=== PATIENT | female | born 1935 | race Two or more races ===

== ENCOUNTER 2020-02-25 05:59 | Inpatient (IN) | payer MEDICARE, MEDICAID ==
[~2020-02-25] VITALS: Ht 165.1 cm; Wt 72.6 kg
[2020-02-25] VITALS (15 sets, daily range): BP systolic 111–193; BP diastolic 65–106
[~2020-02-25 05:59] MED LIST: AVAPRO150 MG ORAL; CRESTOR10 M2 ORAL; DEXILANT60 MG ORAL; DOXAZOSIN MESYLA4 MG ORAL; ELIQUIS5 MG PO; PACERONE200 MG ORAL; SPIRONOLACTONE100 MG ORAL; SYNTHROID25 MCG ORAL; ceFAZolin sod 1 GM in NS 55 ML IVPB ONE
[2020-02-25] MEDS ORDERED: LR 1000ml 1,000 ML IVLG SCH ×2 (07:01)
[2020-02-25] MEDS ORDERED: Rocuronium Bromide 50mg/5ml Inj IV ONE (07:04)
[2020-02-25] MEDS ORDERED: Lidocaine 1% MPF 10mg/ml 5ml ONE (07:12)
[2020-02-25] MEDS ORDERED: Dexamethasone 4mg/ml vial ONE (07:12)
[2020-02-25] MEDS ORDERED: Sodium Chloride 10ml vial INJ ONE (07:12)
[2020-02-25] MEDS ORDERED: Propofol 200mg/20ml IV ONE ×2 (07:12→07:21)
--- NOTE | 2020-02-25 07:12 | Anethesia Preoperative Eval ---
Anesthesia Pre-op PMH/ROS General Date of Evaluation: Feb 25, 2020 Time of Evaluation: 07:36 Anesthesiologist: Bobby ASA Score: ASA 3 Mallampati Score Class I : Soft palate, uvula, fauces, pillars visible Class II: Soft palate, uvula, fauces visible Class III: Soft palate, base of uvula visible Class IV: Only hard plate visible Mallampati Classification: Class II Surgeon: Curtis Diagnosis: Abd Pain Surgical Procedure: Adrenalectomy Anesthesia History: none Family History: no anesthesia problems Allergies: Coded Allergies: No Known Allergies (Unverified , 02/25/20) Medications: see eMAR Patient NPO?: Yes Past Medical History Cardiovascular: Reports: HTN, arrhythmia - AFib, other - HL, CHF Gastrointestinal/Genitourinary: Reports: GERD Hematology/Immune: Reports: other - Skin CA Musculoskeletal/Integumentary: Reports: OA PSxH Narrative: Venous Thrombectomy, R Breast Lumpectomy, RHIANNA/BSO Anesthesia Pre-op Phys. Exam Physician Exam Last Vital Signs Date Time Temp Pulse Resp B/P (MAP) Pulse Ox O2 Delivery O2 Flow Rate FiO2 02/25/20 06:52 Room Air 02/25/20 06:35 97.7 97 20 156/96 97 Constitutional: NAD Neurologic: CN 2-12 intact Cardiovascular: RRR Respiratory: CTA Gastrointestinal: S/NT/ND Airway Exam Mallampati Score: Class II MO: full ROM: full Teeth: missing, intact Anesthesia Pre-op A/P Labs Coagulation Test 02/25/20 06:40 Prothrombin Time Pending Prothromb Time International Ratio Pending Activated Partial Thromboplast Time Pending Risk Assessment & Plan Assessment: ASA 3 Plan: GA, SED, GlideScope Status Change Before Surgery: No Pre-Antibiotics Dru Gram Ancef IV Given Within 1 Hr of Incision: Yes Time Given: 08:06 Avila Rosales MD Feb 25, 2020 07:11
[2020-02-25] MEDS ORDERED: Midazolam 2mg/2ml Inj ONE (07:13)
[2020-02-25] MEDS ORDERED: fentaNYL 100 mcg/2 mL IV ONE (07:13)
[2020-02-25 07:14] LABS: INR 0.9 (0.9-1.1)
[2020-02-25] MEDS ORDERED: Hydromorphone 0.5mg/0.5ml inj IVP PRN ×2 (07:15)
[2020-02-25] MEDS ORDERED: Ketorolac 30mg Inj IV PRN ×4 (07:15)
[2020-02-25] MEDS ORDERED: Acetaminophen (Non formulary) 100 ML IV ONE (07:15)
[2020-02-25] MEDS ORDERED: Atropine Sulfate 0.4mg/ml inj IVP PRN ×2 (07:15)
[2020-02-25] MEDS ORDERED: Meperidine 25mg/0.5ml Inj (FOR RIGORS ONLY) IV PRN ×2 (07:15)
[2020-02-25] MEDS ORDERED: oxyCODONE HCL/Acetaminophen 5/325mg ORAL PRN ×2 (07:15)
[2020-02-25] MEDS ORDERED: DiphenhydrAMINE 50mg/ml Inj IVP PRN ×2 (07:15)
[2020-02-25] MEDS ORDERED: LORazepam Inj 2mg/ml 1ml IV PRN ×2 (07:15)
[2020-02-25] MEDS ORDERED: Metoclopramide 10mg/2ml Inj IVP PRN ×2 (07:15)
[2020-02-25] MEDS ORDERED: HYDROcodone/Acetamin 7.5/325 tab ORAL PRN ×2 (07:15)
[2020-02-25] MEDS ORDERED: Midazolam 2mg/2ml Inj IVP PRN ×2 (07:15)
[2020-02-25] MEDS ORDERED: fentaNYL 100 mcg/2 mL IV PRN ×2 (07:15)
[2020-02-25] MEDS ORDERED: Labetalol 5mg/ml 20ml vial IV PRN ×2 (07:15)
[2020-02-25] MEDS ORDERED: HYDROcodone/Acetamin 5/325 tab ORAL PRN ×2 (07:15)
[2020-02-25] MEDS ORDERED: Ketamine 500mg/10ml vial ONE (07:18)
[2020-02-25] MEDS ORDERED: Lidocaine 1% Plain 30 ml INJ ONE (07:21)
[2020-02-25] MEDS ORDERED: Bupivacaine 0.5% Inj 30 ml vial INJ ONE (07:22)
[2020-02-25] MEDS ORDERED: NS Irrig 1000ml ONE (07:30)
[2020-02-25] MEDS ORDERED: LR 1000ml ONE (07:30)
[2020-02-25] MEDS ORDERED: Sterile Water Irrig 1000ml IRRIG ONE (07:30)
--- NOTE | 2020-02-25 07:59 | Pre-Procedure Note/Attestation ---
Pre-Procedure Note/Attestation Complete Prior to Procedure Planned Procedure: left Procedure Narrative: Left Laparoscopic adrenalectomy Indications for Procedure Pre-Operative Diagnosis: adrenal mass Attestation I attest that I discussed the nature of the procedure; its benefits; risks and complications; and alternatives (and the risks and benefits of such alternatives ), prior to the procedure, with the patient (or the patient's legal commissary representative). I attest that, if there was a reasonable possibility of needing a blood transfusion, the patient (or the patient's legal commissary representative) was given the [facility] standardized written summary, pursuant to the [place] S[place] Blood Safety Act ([place] Health and Safety Code # 1645, as amended). I attest that I re-evaluated the patient just prior to the surgery and that there has been no change in the patient's H&P, except as documented below: David Acevedo MD Feb 25, 2020 07:59
[2020-02-25] MEDS ORDERED: Metoprolol Tartrate 5mg/5ml Inj ONE (08:12)
--- NOTE | 2020-02-25 08:43 | Immediate Post-Op Evaluation ---
Immediate Post-Op Evalulation Immediate Post-Op Evalulation Procedure: Adrenalectomy Date of Evaluation: Feb 25, 2020 Time of Evaluation: 10:17 IV Fluids: 600 LR Blood Products: 0 Estimated Blood Loss: 25 Urinary Output: 0 Blood Pressure Systolic: 201 Blood Pressure Diastolic: 113 Pulse Rate: 61 Respiratory Rate: 16 O2 Sat by Pulse Oximetry: 100 Temperature (Fahrenheit): 97.4 Pain Score (1-10): 2 Nausea: No Vomiting: No Complications 0 Patient Status: awake, reacts, patent, extubated, none Hydration Status: adequate Dru Gram Ancef IV Given Within 1 Hr of Incision: Yes Time Given: 08:06 Avila Rosales MD Feb 25, 2020 08:43
[2020-02-25] MEDS ORDERED: Neostigmine 1mg/ml 10ml Inj ONE (09:24)
[2020-02-25] MEDS ORDERED: Glycopyrrolate 0.2mg/ml 1ml Vial ONE (09:24)
--- NOTE | 2020-02-25 10:16 | Brief Operative Note ---
Immediate Post Operative Note Operative Note Pre-op Diagnosis: adrenal mass Procedure: Left Laparoscopic adrenalectomy Post-op Diagnosis: adrenal mass Post-op Diagnosis: same as pre-op Surgeon: Bishop Acevedo Lead Retail Sales Associate: Ravinder Posey Anesthesia: general Specimen: yes Complications: none Condition: stable Fluids: 42019 Estimated Blood Loss: minimal Implant(s) used?: No David Acevedo MD Feb 25, 2020 10:16
--- NOTE | 2020-02-25 10:47 | 48 Hour Post Anesthesia Eval ---
Post Anesthesia Evaluation Procedure: Adrenalectomy Date of Evaluation: Feb 25, 2020 Time of Evaluation: 12:23 Blood Pressure Systolic: 154 0: 76 Pulse Rate: 82 Respiratory Rate: 18 Temperature (Fahrenheit): 98 O2 Sat by Pulse Oximetry: 98 Airway: patent Nausea: No Vomiting: No Pain Intensity: 2 Hydration Status: adequate Cardiopulmonary Status: Stable Mental Status/LOC: patient returned to baseline Follow-up Care/Observations: 0 Post-Anesthesia Complications: 0 Follow-up care needed: N/A Avila Rosales MD Feb 25, 2020 10:47
[2020-02-25 10:50] LABS: HEMATOCRIT 43.3 % (37.0-47.0); HEMOGLOBIN 14.9 G/DL (12.0-16.0); MEAN CORPUSCULAR VOLUME 94 FL (80-99); PLATELET COUNT 175 K/UL (150-450); RED BLOOD COUNT 4.58 M/UL (4.20-5.40); RED CELL DISTRIBUTION WIDTH 12.4 % (11.6-14.8); WHITE BLOOD COUNT 13.3 K/UL (4.8-10.8)
[2020-02-25 10:58] LABS: ANION GAP 8 mmol/L (5-15); BLOOD UREA NITROGEN 23 mg/dL (7-18); CALCIUM 8.7 MG/DL (8.5-10.1); CARBON DIOXIDE 29 MMOL/L (21-32); CHLORIDE 100 MMOL/L (98-107); CREATININE 1.3 MG/DL (0.55-1.30); SODIUM 137 MMOL/L (136-145)
--- NOTE | 2020-02-25 11:30 | NUR ---
NURSE NOTES:RECEIVED FR.PACU BY BED,REPORT GIVEN BY RICHARD DOWNS. S/P LEFT LAPAROSCOPIC ADRENALECTOMY UNDER GENERAL ANESTHESIA,DROWSY BUT AROUSABLE,MOVING ALL EXTREMITIES,ABDOMEN OBESE 2 LAP SITES DRSNG. WITH STAIN,THE OTHER 2 LAP SITES DRSNG CLEAN DRY/INTACT.IV SITE PATENT.F/C DRAINING YELLOW URINE.PLAN OF CARE DISCUSSED AND WITH UNDERSTANDING.
[2020-02-25] MEDS: D5 1/2NS w/KCl 20mEq 1,000 ML IV SCH ×2 (12:59→22:40)
[2020-02-25] MEDS: ceFAZolin 2gm/50ml Premix 50 ML IV SCH ×2 (17:06→23:59)
[2020-02-25] MEDS: HYDROmorphone 1mg/ml Carpuject IVP PRN (17:32)
--- NOTE | 2020-02-25 17:32 | NUR ---
NURSE NOTES:C/O POST OP PAIN 03/14,MEDICATED WITH DILAUDID 1MG IV.SIDE EFFECTS WAS DISCUSSED WITH PT.PRIOR TO GIVING MED.WITH UNDERSTANDING.
[2020-02-25] MEDS: Docusate 100mg cap ORAL SCH (18:00)
--- NOTE | 2020-02-25 19:30 | NUR ---
HAND-OFF: Report given to ARLEEN DOWNS.PT.STABLE.
--- NOTE | 2020-02-25 19:31 | NUR ---
NURSE NOTES: Received report & pt from YARELI Lange. Pt lying in bed, a&ox4, Filipino speaking with little Belarusian, on O2 via NC @ 2LPM. No s/s of acute distress & no c/o pain at this time. Wheeler intact & draining yellow urine utput to gravity. Lap sites x4 dry & intact. IV site intact with IVF running as ordered. Plan of care discussed.
--- NOTE | 2020-02-25 22:00 | NUR ---
NURSE NOTES: Instructed pt how to use the incentive spirometer. Encouraged pt to use IS 10x every hour while awake. Average volume inspired 500-1000 ml
[2020-02-26 00:09] VITALS: BP 135/88
[2020-02-26 04:00] VITALS: BP 157/85
[2020-02-26 06:06] LABS: HEMATOCRIT 40.3 % (37.0-47.0); HEMOGLOBIN 13.9 G/DL (12.0-16.0); MEAN CORPUSCULAR VOLUME 95 FL (80-99); PLATELET COUNT 153 K/UL (150-450); RED BLOOD COUNT 4.22 M/UL (4.20-5.40); RED CELL DISTRIBUTION WIDTH 12.8 % (11.6-14.8); WHITE BLOOD COUNT 11.2 K/UL (4.8-10.8)
[2020-02-26 06:42] LABS: ANION GAP 5 mmol/L (5-15); BLOOD UREA NITROGEN 22 mg/dL (7-18); CALCIUM 8.1 MG/DL (8.5-10.1); CARBON DIOXIDE 29 MMOL/L (21-32); CHLORIDE 99 MMOL/L (98-107); CREATININE 1.3 MG/DL (0.55-1.30); POTASSIUM 4.8 MMOL/L (3.5-5.1); SODIUM 133 MMOL/L (136-145)
--- NOTE | 2020-02-26 07:36 | NUR ---
HAND-OFF: Report given to YARELI Vance for YARELI Gonzalez. Hand written report also provided. Pt in stable condition.
--- NOTE | 2020-02-26 07:49 | NUR ---
NURSE NOTES: Received hand off note. Patient is AAO X4 and resting comfortably in bed. Denies any pain at this time. No signs of acute distress noted; Patient is able to make needs known. Checked IV site; patent and flushed. No erythema, bleeding, or infiltration noted. Bed at lowest position, brakes on, siderails up x3. Call light within reach. Will continue with the plan of care.
[2020-02-26 08:00] VITALS: BP 142/83
[2020-02-26] MEDS: Docusate 100mg cap ORAL SCH ×2 (08:49→17:38)
[2020-02-26] MEDS: D5 1/2NS w/KCl 20mEq 1,000 ML IV SCH ×2 (09:57→19:43)
[2020-02-26] MEDS: HYDROmorphone 1mg/ml Carpuject IVP PRN ×2 (09:58→23:42)
[2020-02-26 12:00] VITALS: BP 142/79
--- NOTE | 2020-02-26 13:48 | NUR ---
CASE MANAGEMENT: INITIAL REVIEW 84YR OLD FEMALE HERE FOR ELECTIVE SURGERY CC: ABDOMINAL PAIN SI:ADRENAL MASS 97.7 97 20 156/96 97% ON RA WBC 13.3 BUN 23 BG 194 IS: IN SURGERY NOW LEFT LAPAROSCOPIC ADRENALECTOMY IV D5@100ML/HR IV ANCEF Q8HR IV DILAUDID COLACE PO BID \: 3E MED SURG UNIT DCP: HOME WHEN STABLE
[2020-02-26 16:00] VITALS: BP_SYST 152; BP_SYST 157; BP_DIAS 83; BP_DIAS 85
--- NOTE | 2020-02-26 16:31 | NUR ---
P.T Note: late entry :1000 P.T evaluation completed and tx initiated. Please refer to P.T evaluation for full report. Pt is alert, O x 4, pleasant and cooperative. Pt has limited participation with ADL/functional activities due to c/o dizziness and increased pain in the abdomen aggravated by movement initiation. Pt was premedicated prior to P.T evaluation. Pt currently require extended time MOD A X 1 and extended time to turn and transition from supine to/from sitting and MOD A X 1 for sit to/from stand transitions. Pt was able to stand using the FWW however too unsteady to ambulate. Pt was only able to take 3-4 steps with MOD A X 1 using the FWW. Pt will be seen for skilled P.T service to increase mobility independence and safety towards achieving PLOF during her stay. Recommend Home P.T for safety follow up and FWW at [place].
--- NOTE | 2020-02-26 19:10 | NUR ---
NURSE NOTES: Recieed report from Corrina RN, pt stable
--- NOTE | 2020-02-26 19:15 | NUR ---
NURSE NOTES: Received report from Corrina RN, pt stable a/ox4, breaths regular unlabored on 2 L NC, c/o pain of 3/10 of abd , will provide pain medication as ordered . Abd dressings clean intact , i.v site on the RT hand 20g with i.v fluids running , patent and asymptomatic, Wheeler catheter in place and draining , i.s by the bed side pt encouraged to use it. bed in low locked position, call light with in reach, will continue with plan of care
--- NOTE | 2020-02-26 19:26 | NUR ---
HAND-OFF: Report given to Mitesh DOWNS. Patient is in stable condition.
[2020-02-26 20:00] VITALS: BP 157/93
--- NOTE | 2020-02-26 20:44 | Consultation ---
DATE OF CONSULTATION: 02/26/2020 INTERNAL MEDICINE CONSULTATION CONSULTING PHYSICIAN: Arnaldo Douglas MD. HISTORY OF PRESENT ILLNESS: This is an 84-year-old female who has undergone laparoscopic adrenalectomy by Dr. David Acevedo. She is doing well postop day 1. Procedure was a laparoscopic adrenalectomy with 19,000 fluid and minimal blood loss. The patient at this time denies any new complaints. She is current on vaccinations. PAST HISTORY: Notable for hysterectomy and salpingo-oophorectomy, bladder suspension as well as venous thrombectomy and skin cancer resection. She has also history of heart disease with hyperlipidemia, congestive heart failure, atrial fibrillation, and venous varicosities. 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 HOME MEDICATIONS: List of home medications include ubiquinone, Crestor, levothyroxine, Dexilant, Ativan, captopril, Estrace, hydrochlorothiazide, amiodarone, Eliquis, Flonase, irbesartan, Aldactone, Spiriva, and clonidine. ALLERGIES: To Crestor. SOCIAL HISTORY: No history of alcohol or tobacco usage. REVIEW OF SYSTEMS: Denies any headaches, hematemesis, melena, hematochezia, night sweats, or weight loss. PHYSICAL EXAMINATION: GENERAL: Reveals an 84-year-old female. VITAL SIGNS: Blood pressure at this time is 130/50, heart rate 74, respirations 18, she is afebrile. HEENT: Unremarkable. CHEST: Lungs with clear breath sounds bilaterally. ABDOMEN: Soft. EXTREMITIES: There is no edema. LABORATORY AND DIAGNOSTIC DATA: Lab testing preoperatively is unremarkable. EKG shows normal sinus rhythm. CT coronary angiography done on 12/22/2019, which is normal. IMPRESSION: 1. Hypertension. 2. CHF. 3. Diabetes mellitus. 4. Hyperlipidemia. 5. History of PE. 6. Chronic anticoagulation. 7. Status post adrenalectomy, postop day 1. DISCUSSION: The patient is doing fairly well. She is reporting dizziness as well as anorexia. Physical therapy has been requested. We will continue fluids. We will continue physical therapy and advance slowly. Hold off on home medications at this point in time. We will advance as tolerated. Arnaldo Douglas M.D. DR: Garrett JOB#: [id number] CC:
[2020-02-27] VITALS: BP 147/79
[2020-02-27 04:00] VITALS: BP 137/82
[2020-02-27] MEDS: D5 1/2NS w/KCl 20mEq 1,000 ML IV SCH (05:05)
[2020-02-27] MEDS: HYDROmorphone 1mg/ml Carpuject IVP PRN (05:06)
[2020-02-27 05:54] LABS: BASOPHILS % (AUTO) 0.2 % (0.0-2.0); EOSINOPHILS % (AUTO) 0.5 % (0.0-3.0); HEMATOCRIT 40.4 % (37.0-47.0); HEMOGLOBIN 13.9 G/DL (12.0-16.0); MEAN CORPUSCULAR VOLUME 95 FL (80-99); MONOCYTES % (AUTO) 3.2 % (1.0-10.0); NEUTROPHILS % (AUTO) 83.2 % (45.0-75.0); PLATELET COUNT 160 K/UL (150-450); RED BLOOD COUNT 4.25 M/UL (4.20-5.40); RED CELL DISTRIBUTION WIDTH 12.8 % (11.6-14.8); WHITE BLOOD COUNT 11.6 K/UL (4.8-10.8)
[2020-02-27 06:12] LABS: BLOOD UREA NITROGEN 14 mg/dL (7-18); CALCIUM 8.1 MG/DL (8.5-10.1); CARBON DIOXIDE 31 MMOL/L (21-32); CREATININE 0.9 MG/DL (0.55-1.30)
[2020-02-27 06:31] LABS: CHLORIDE 99 MMOL/L (98-107); POTASSIUM 4.6 MMOL/L (3.5-5.1); SODIUM 132 MMOL/L (136-145)
--- NOTE | 2020-02-27 07:42 | NUR ---
HAND-OFF: Report given to Ilan DOWNS. PT stable.
[2020-02-27 08:00] VITALS: BP 132/81
--- NOTE | 2020-02-27 08:00 | NUR ---
NURSE NOTES: Received report from Mitesh RN, pt a/a/o x4 laying in bed with no signs of distress or other issues at this time. Wheeler cath in place. over night out put: 600ml. IV on the right FA running D5 1/2NS +20mEq@100ml/hr. pt has 4 small dressing surgical dressings. call light within reach, bed in lowest position. side rales up x2. I will f/u as needed.
[2020-02-27] MEDS: Docusate 100mg cap ORAL SCH ×2 (08:43→17:02)
--- NOTE | 2020-02-27 10:00 | NUR ---
NURSE NOTES: per order RN removed Wheeler cath as indicated by Dr. Quiros. pt was able to tolerated procedure with no signs of distress or other issues at this time. I will fallow up for post void.
--- NOTE | 2020-02-27 10:29 | NUR ---
NURSE NOTES: Spoke to regarding patient and ok to d/c Wheeler catheter. Order noted and carried out.
--- NOTE | 2020-02-27 11:28 | Pulmonology Progress Note ---
Assessment/Plan Assessment/Plan IMPRESSION: 1. Hypertension. 2. CHF. 3. Diabetes mellitus. 4. Hyperlipidemia. 5. History of PE. 6. Chronic anticoagulation. 7. Status post adrenalectomy, postop day 2. DISCUSSION: The patient is doing fairly well. Physical therapy has been requested. I will discontinue fluids. Hold off on home medications at this point in time. I will advance as tolerated. Discussed anticoagulation with Dr. Acevedo; will avoid for now due to recent surgery; likely resume in 3-5 days Arnaldo Douglas M.D. Subjective Interval Events: Doing better Constitutional: Reports: no symptoms HEENT: Repors: no symptoms Respiratory: Reports: no symptoms Cardiovascular: Reports: no symptoms Gastrointestinal/Abdominal: Reports: no symptoms Allergies: Coded Allergies: No Known Allergies (Unverified , 02/25/20) Objective Last 24 Hour Vital Signs Date Time Temp Pulse Resp B/P (MAP) Pulse Ox O2 Delivery O2 Flow Rate FiO2 02/27/20 08:00 98.0 82 18 132/81 (98) 95 02/27/20 04:00 98.0 90 17 137/82 (100) 95 02/27/20 00:00 99.1 82 19 147/79 (101) 95 02/26/20 21:00 Nasal Cannula 2.0 02/26/20 20:00 98.3 80 19 157/93 (114) 96 02/26/20 16:00 97.5 72 16 157/85 (109) 99 02/26/20 16:00 98.5 79 18 152/83 (106) 99 02/26/20 12:00 98.3 67 19 142/79 (100) 97 Intake and Output 02/26/20 02/27/20 19:00 07:00 Output Total 300 ml 600 ml Balance -300 ml -600 ml Output Urine Total 300 ml 600 ml General Appearance: no acute distress HEENT: normocephalic Respiratory/Chest: chest wall non-tender, lungs clear Cardiovascular: normal peripheral pulses Laboratory Tests 02/27/20 05:05: White Blood Count 11.6H, Red Blood Count 4.25, Hemoglobin 13.9, Hematocrit 40.4 , Mean Corpuscular Volume 95, Mean Corpuscular Hemoglobin 32.8H, Mean Corpuscular Hemoglobin Concent 34.5, Red Cell Distribution Width 12.8, Platelet Count 160, Mean Platelet Volume 5.4L, Neutrophils (%) (Auto) 83.2H, Lymphocytes (%) (Auto) 13.0L, Monocytes (%) (Auto) 3.2, Eosinophils (%) (Auto) 0.5, Basophils (%) (Auto) 0.2, Sodium Level 132L, Potassium Level 4.6, Chloride Level 99, Carbon Dioxide Level 31, Blood Urea Nitrogen 14, Creatinine 0.9, Estimat Glomerular Filtration Rate 59.7, Glucose Level 125#H, Calcium Level 8.1L Current Medications Medications (Trade) Dose Ordered Sig/Raven Route PRN Reason Start Time Stop Time Status Last Admin Dose Admin Docusate Sodium (Colace) 100 mg TWICE A DAY ORAL 02/25/20 18:00 03/26/20 17:59 02/27/20 08:43 Hydromorphone HCl (Dilaudid) 1 mg Q3H PRN IVP pain score 4-6 02/25/20 10:30 03/03/20 10:29 02/27/20 05:06 Ondansetron HCl (Zofran) 4 mg Q6H PRN IVP Nausea & Vomiting 02/25/20 10:30 03/26/20 10:29 Temazepam (RestoriL) 7.5 mg DAILYPRN PRN ORAL Insomnia 02/25/20 10:30 03/03/20 10:29 Arnaldo Douglas MD Feb 27, 2020 11:28
[2020-02-27 12:00] VITALS: BP 116/77
--- NOTE | 2020-02-27 12:13 | NUR ---
CASE MANAGEMENT:REVIEW SI;POD #1 ADRENALECTOMY. 99.1 90 19 157/93 95% 2L NC WBC 11.6 NA 132 CA 8.1 IS;IVF D5 @ 100 ML/HR MED SURG STATUS DCP;FROM HOME WHEN STABLE PLAN;PHYSICAL THERAPY DC FLUIDS
[2020-02-27 16:00] VITALS: BP 130/70
--- NOTE | 2020-02-27 16:59 | Operative Note - Dictated ---
DATE OF OPERATION: 02/25/2020 PREOPERATIVE DIAGNOSIS: Left adrenal mass. POSTOPERATIVE DIAGNOSIS: Left adrenal mass. OPERATION: Laparoscopic left adrenalectomy. CARDIOLOGY PHYSICIAN: David Acevedo MD HOUSETRAILER SERVICER: Ravinder Posey MD. FINDINGS: Large left adrenal mass. INDICATIONS FOR SURGERY: The patient had adrenal mass found on MRI. She underwent CT-guided biopsy, which showed diagnosis of adrenal cell carcinoma. Treatment options were explained to her in great length including all potential complications. She understood the nature of the procedure and signed the consent. DESCRIPTION OF PROCEDURE: She was brought to the operating room, placed in left lateral decubital position, prepped and draped in standard fashion. Hand port was placed in the mid subxiphoid incision as well as three additional trocars, two 12's and one 5. was created to 15 mmHg. Laparoscope was introduced. Dissection started with mobilization of the splenic and descending colon. The colon was retracted medially exposing the left kidney. Gerota fascia was opened and the left kidney was mobilized including a fairly large left adrenal mass. Careful dissection with using Hemoclips, electrocautery, and sharp and blunt dissection. The mass was completely mobilized from surrounding adhesions. Adrenal vein was clipped and severed. Endo-CHANNING was used for splenic attachments and mass was removed in one session for pathologic examination. Bleeding sites were examined. Surgicel and FloSeal were used as well as additional cautery. No evidence of bleeding. Estimated blood loss was approximately 30 mL. Bowel was repositioned as well as the spleen, and specimen was removed for pathologic examination. Sponge count and instrument count was correct. Wound was closed in three layers. Subcuticular closure for the skin. David Acevedo M.D. DR: LOW JOB#: [id number] CC:
--- NOTE | 2020-02-27 19:19 | NUR ---
HAND-OFF: Report given to Mitesh DOWNS, pt in stable condition - Removed Wheeler cath at 10:00am. however pt is unable to void until now. bladders scanner done x2 it shows 0ml retention. RN asked incoming nurse to repeat with another bladder scanner just incase is something is wrong with our bladder scanner and to please contact MD with results for further orders. - pt was able to ambulate around the room with staff assistance and the use of the FWW. plan: to d/c home tomorrow morning.
--- NOTE | 2020-02-27 19:20 | NUR ---
NURSE NOTES: Received report from Ilan DOWNS, pt remains stable. Abd dressings clean intact, abdominal distention noted will continue to monitor , i.v site on the RT hand 20g locked , i.s by the bed side pt encouraged to use it. bed in low locked position, call light with in reach, will continue with plan of care
[2020-02-27 20:00] VITALS: BP 139/93
--- NOTE | 2020-02-27 22:51 | NUR ---
NURSE NOTES: Assessed patient abdomen and it is distended patient has not voided since the catheter removal . called and spoke with Dr Jacobsen and he advised me to call Dr Davidson or Olga
--- NOTE | 2020-02-27 23:30 | NUR ---
NURSE NOTES: New orders for stat KUB and Wheeler catheter received , verified and carried, will notify pt about plan of care
[2020-02-28] VITALS: BP 137/91
--- NOTE | 2020-02-28 02:09 | Diagnostic Imaging Report ---
EXAM: XR Abdomen, 2 Views CLINICAL HISTORY: ABD DIST TECHNIQUE: Frontal view of the abdomen/pelvis with upright view of the abdomen. COMPARISON: No relevant prior studies available. FINDINGS: Lower thorax: Limited evaluation of the lung bases. Intraperitoneal space: No free air. Gastrointestinal tract: Scattered gas-filled small and large bowel loops without findings to definitively suggest obstruction or ileus. Bones/joints: [place] right spine curvature. Degenerative spine findings. Osteopenia. Soft tissues: Operative clips in the upper abdomen and low left pelvis/left inguinal region. Other findings: No acute abnormality definitively seen. If there is further clinical concern, recommend CT abdomen and pelvis with oral and IV contrast. IMPRESSION: 1. Limited evaluation of the lung bases. 2. No acute abnormality definitively seen. 3. Scattered gas-filled small and large bowel loops without findings to definitively suggest obstruction or ileus. 4. If there is further clinical concern, recommend CT abdomen and pelvis with oral and IV contrast.
[2020-02-28 04:00] VITALS: BP 150/80
--- NOTE | 2020-02-28 07:29 | NUR ---
HAND-OFF: Report given to Greg DOWNS, pt mauricio.
[2020-02-28 08:00] VITALS: BP 146/96
[2020-02-28] MEDS: Docusate 100mg cap ORAL SCH (10:19)
--- NOTE | 2020-02-28 10:29 | NUR ---
NURSE NOTES: Handoff received from YARELI Sagastume. Patitent is awake and alert, no acute distress noted. Rt hand IV is asymptomatic and SL. Patient reports 0/10 pain. Bed is low and locked, side rails up x2.
--- NOTE | 2020-02-28 11:34 | Pulmonology Progress Note ---
Assessment/Plan Assessment/Plan IMPRESSION: 1. Hypertension. 2. CHF. 3. Diabetes mellitus. 4. Hyperlipidemia. 5. History of PE. 6. Chronic anticoagulation. 7. Status post adrenalectomy, postop day 3. DISCUSSION: The patient is doing fairly well. Tolerating PO's Wheeler replaced overnight due to retention. DC home Discussed anticoagulation with Dr. Acevedo; will avoid for now due to recent surgery; likely resume in 3-5 days Arnaldo Douglas M.D. Subjective Interval Events: Doing better Constitutional: Reports: no symptoms HEENT: Repors: no symptoms Respiratory: Reports: no symptoms Cardiovascular: Reports: no symptoms Gastrointestinal/Abdominal: Reports: no symptoms Allergies: Coded Allergies: No Known Allergies (Unverified , 02/25/20) Objective Last 24 Hour Vital Signs Date Time Temp Pulse Resp B/P (MAP) Pulse Ox O2 Delivery O2 Flow Rate FiO2 02/28/20 08:00 99.1 82 19 146/96 (113) 97 02/28/20 04:00 98.6 86 19 150/80 (103) 98 02/28/20 00:00 98.1 90 18 137/91 (106) 97 02/27/20 21:00 Nasal Cannula 2.0 02/27/20 20:00 99.0 95 18 139/93 (108) 95 02/27/20 16:00 98.1 70 18 130/70 (90) 95 02/27/20 12:00 97.9 75 18 116/77 (90) 98 Intake and Output 02/27/20 02/28/20 19:00 07:00 Intake Total 240 ml 400 ml Output Total 200 ml 275 ml Balance 40 ml 125 ml Intake Oral 240 ml 400 ml Output Urine Total 200 ml 275 ml General Appearance: no acute distress HEENT: normocephalic Respiratory/Chest: chest wall non-tender, lungs clear Cardiovascular: normal peripheral pulses Current Medications Medications (Trade) Dose Ordered Sig/Raven Route PRN Reason Start Time Stop Time Status Last Admin Dose Admin Docusate Sodium (Colace) 100 mg TWICE A DAY ORAL 02/25/20 18:00 03/26/20 17:59 02/28/20 10:19 Hydromorphone HCl (Dilaudid) 1 mg Q3H PRN IVP pain score 4-6 02/25/20 10:30 03/03/20 10:29 02/27/20 05:06 Ondansetron HCl (Zofran) 4 mg Q6H PRN IVP Nausea & Vomiting 02/25/20 10:30 03/26/20 10:29 Temazepam (RestoriL) 7.5 mg DAILYPRN PRN ORAL Insomnia 02/25/20 10:30 03/03/20 10:29 Arnaldo Douglas MD Feb 28, 2020 11:34
[2020-02-28] MEDS ORDERED: LEVAQUIN500 MG ORAL (11:35)
[2020-02-28] MEDS ORDERED: NORCO 5-325 TA1 EAC1 ORAL (11:35)
[2020-02-28 12:00] VITALS: BP 146/96
[2020-02-28 16:00] VITALS: BP 137/85
--- NOTE | 2020-02-28 19:32 | Discharge Summary ---
Discharge Summary Hospital Course Date of Admission Feb 25, 2020 at 11:38 Date of Discharge Feb 28, 2020 at 18:15 Admitting Diagnosis Left adrenal mass. Reason for Hospitalization: Elective surgery MEL Cherry is a 84 year old female who was admitted on Feb 25, 2020 at 11:38 for large left adrenal mass. Patient was admitted for elective surgery. Consultations Internal medicine Dr. Douglas Procedures s/p 02/25/[address] Acevedo Laparoscopic left adrenalectomy. Hospital Course patient had large left adrenal mass found on MRI patient subsequently undergone CT-guided biopsy which revealed adrenal cell carcinoma treatment options were discussed with the patient in great details, including all potential complications patient understood the nature of procedure and signed a consent for laparoscopic adrenalectomy. patient subsequently undergone laparoscopic left adrenalectomy on 02/24 course of recovery was uneventful patient slowly started on diet as tolerated pain management was addressed wound care provided patient was mobilized out of bed as tolerated incentive spirometry was encouraged while in the bed home medication continued Wheeler catheter initially was discontinue , but then replaced secondary to urinary retention KUB revealed no acute abnormality initial mild leukocytosis postoperatively trended down, no fevers renal parameters remained stable bowel regimen instituted patient remained hemodynamically stable patient clinically stabilized and was ready for discharge home home health services arranged outpatient follow-up with urologist either in the office or via the phone FINAL DIAGNOSES Large left adrenal mass Adrenal cell carcinoma s/p Laparoscopic left adrenalectomy Hypertension Diabetes mellitus Hyperlipidemia Congestive heart failure 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 Urinary retention Discharge Medications New Medications: Hydrocodone Bit/Acetaminophen 5-325* (Beemer 5-325 Tablet*) 1 Each Tablet 1 TAB ORAL Q6H PRN for 7 Days, #10 TAB 0 Refills Levofloxacin* (Levaquin*) 500 Mg Tablet 500 MG ORAL DAILY for 7 Days, TAB Continued Medications: Amiodarone Hcl* (Pacerone*) 200 Mg Tablet 200 MG ORAL QOD for heart, TAB (This prescription has been renewed) Dexlansoprazole (Dexilant) 60 Mg Ermias.bp 60 MG ORAL DAILY for gerd, CAP (This prescription has been renewed) Doxazosin Mesylate* (Doxazosin Mesylate*) 4 Mg Tablet 4 MG ORAL DAILY for htn, TAB (This prescription has been renewed) Irbesartan* (Avapro*) 150 Mg Tablet 150 MG ORAL BID for htn, TAB (This prescription has been renewed) Levothyroxine Sodium* (Synthroid*) 25 Mcg Tablet 50 MCG ORAL DAILY for thyroid, TAB (This prescription has been renewed) Take in the morning on an empty stomach, at least 30 minutes before food. Rosuvastatin Calcium* (Crestor*) 10 Mg Tablet 10 MG ORAL DAILY for cholesterol, TAB (This prescription has been renewed) Spironolactone* (Spironolactone*) 100 Mg Tablet 50 MG ORAL DAILY for htn, TAB (This prescription has been renewed) Discontinued Medications: Apixaban (Eliquis) 5 Mg Tablet 5 MG PO BID for blood thinner, TAB Discharge Condition Upon Discharge: stable Discharge Vital Signs Last Vital Signs Date Time Temp Pulse Resp B/P (MAP) Pulse Ox O2 Delivery O2 Flow Rate FiO2 02/28/20 16:00 97.7 81 21 137/85 (102) 97 02/27/20 21:00 Nasal Cannula 2.0 Discharge Disposition Patient was discharged home Discharge Instructions Discharge Instructions Special Instructions I have been assigned to complete a D/C Summary on this account. I was not involved in the patient management Amaya Silver NP Feb 28, 2020 19:32
== END 2020-02-28 18:15 | disposition home health service (06) | DRG 615 ==
LOC: SUR 05:59 → 3E 11:38
PROC: 0GT24ZZ Resection of Left Adrenal Gland, Percutaneous Endoscopic Approach (ICD-10-PCS; principal; 2020-02-25 07:30)
DX: C74.02 Malignant neoplasm of cortex of left adrenal gland (principal); E11.9 Type 2 diabetes mellitus without complications; E78.5 Hyperlipidemia, unspecified; I11.0 Hypertensive heart disease with heart failure; I50.9 Heart failure, unspecified; Z86.711 Personal history of pulmonary embolism; Z79.01 Long term (current) use of anticoagulants; R33.9 Retention of urine, unspecified; Z88.8 Allergy status to other drugs, medicaments and biological substances
CPT/HCPCS: 36415; 74018; 80048; 85007; 85025; 85610; 85730; 94003; 94150; J2180; J2250; J2405; J2710